=== PATIENT | female | born 1950 | race American Indian/Alaskan Native ===

== ENCOUNTER 2017-06-14 16:14 | Outpatient (CLI) | payer MEDICARE ==
--- NOTE | 2017-06-14 16:39 | XRay Report ---
LEFT HAND: Pain. The bony architecture is intact. Bony alignment is normal. No soft tissue abnormalities are seen. The joint spaces appear preserved. IMPRESSION: Normal left hand.
== END 2017-06-14 16:15 | disposition home or self-care (01) ==
LOC: SPVIMAG 16:14
PROVIDERS: ATTEND Orthopaedic Surgery Sports Medicine
DX: M79.642 Pain in left hand (principal)

== ENCOUNTER 2018-07-31 08:34 | Day surgery (SDC) | payer MEDICARE, OTHER ==
[2018-07-31] MEDS ORDERED: DIPRIVAN 10 MG/ML IV ONE ×2 (09:35)
--- NOTE | 2018-07-31 09:45 | Anesthesia Day of Surgery ---
Anesthesia Day of Surgery - Day of Surgery Patient Examined: Yes Patient H&P Reviewed: Yes Patient is NPO: Yes Beta Blockers: No
--- NOTE | 2018-07-31 09:45 | Anesthesia Consultation ---
Anesthesia Consult and Med Hx - Airway Anesthetic Teeth Evaluation: Good ROM Head & Neck: Adequate Mental/Hyoid Distance: Adequate Mallampati Class: Class III Intubation Access Assessment: Good - Pulmonary Exam CTA: Yes - Cardiac Exam Cardiac Exam: No Murmur - Pre-Operative Health Status ASA Pre-Surgery Classification: ASA1 Proposed Anesthetic Plan: MAC
[2018-07-31] MEDS ORDERED: NACL 0.9% 1000 ML 1,000 ML IV SCH (10:00)
--- NOTE | 2018-07-31 10:40 | Procedure Note ---
Date of procedure: 07/31/18 Pre-op diagnosis: Colon Polyp Screening Post-op diagnosis: other (No Colon Polyps noted/ Moderate, Left colon diverticular disease/ Minor, Internal Hemorrhoid) Procedure: Colonoscopy Anesthesia: MAC Surgeon: ALIA FAUSTIN Estimated blood loss: none Pathology: none Condition: stable Disposition: same day (Encourage fiber intake and resume home medication and follow up in 1 to 2 weeks ([phone]).)
[2018-07-31 11:20] VITALS: BP 152/90
--- NOTE | 2018-08-01 00:48 | Consultation ---
HISTORY OF PRESENT ILLNESS: This is a 67-year-old -[place] female, who had a colonoscopy done as part of colon polyp screening. She has a prior history of hysterectomy and oophorectomy and prior history of colon polyp. She also is concerned about liver function test and will have a liver function test checked as an outpatient to assess for any associated nonalcoholic steatohepatitis. Colonoscopy was done after getting informed consent with MAC anesthesia. Initial rectal exam was unremarkable. Instrument was passed through the rectum onto the cecum, which was identified by the ileocecal valve and the appendiceal orifice. Visualization was fair to good. Cecum, ascending colon, and transverse colon showed normal mucosa. There was moderate left colon diverticular disease noted and the rectum showed mild internal hemorrhoid on the retroverted view. No biopsies were done. There was no bleeding associated with the procedure and no complications associated with the procedure. ASSESSMENT: Colon polyp screening, no colon polyps noted. Moderate left colon diverticula and minor internal hemorrhoids. PLAN: To encourage fiber supplements, have the patient follow up as an outpatient and to do liver function test as an outpatient. RNRonda was in the room throughout the entirety of the procedure. The patient did not have any bleeding or any complications associated with the procedure. JOB# [id number] HILL/MANNIE
--- NOTE | 2018-08-07 08:45 | Operative Report ---
PROCEDURE: Colonoscopy. INDICATIONS: This is a 67-year-old -[place] female who had a colonoscopy done as part of colon polyp screening. Last colonoscopy was done several years ago. She has a history of partial hysterectomy and oophorectomy. Colonoscopy was done as part of colon polyp screening. DESCRIPTION OF PROCEDURE: The procedure was done after getting informed consent with MAC anesthesia. Initial rectal exam was unremarkable. Instrument was passed through the rectum onto the cecum, which was identified by the ileocecal valve and the appendiceal orifice. Cecum, ascending colon, transverse colon showed normal mucosa. There is moderate diverticular disease noted in the left colon and Minor internal hemorrhoids noted. There are no colon polyps noted. There were no biopsies done and no bleeding or complications associated with the procedure. ASSESSMENT: Colon polyp screening, no colon polyps noted. Moderate left colon diverticular disease, minor internal hemorrhoids. The patient has been encouraged to take fiber supplements. Follow up in the office in 1-2 weeks' time. Procedure was done in the presence of the GI lab team who was there throughout the entirety of the procedure. JOB# [id number] HILL/MANNIE
== END 2018-07-31 11:21 | disposition home or self-care (01) ==
LOC: GIO 08:34
DX: Z12.11 Encounter for screening for malignant neoplasm of colon (principal); K57.30 Diverticulosis of large intestine without perforation or abscess without bleeding; K64.8 Other hemorrhoids; Z88.0 Allergy status to penicillin; Z90.49 Acquired absence of other specified parts of digestive tract; Z98.890 Other specified postprocedural states; Z90.710 Acquired absence of both cervix and uterus; Z90.721 Acquired absence of ovaries, unilateral
CPT/HCPCS: G0121; J2704; J7030